=== PATIENT | male | born 1980 | race Caucasian/White ===

== ENCOUNTER → 2016-02-19 | Outpatient (CLI) | payer OTHER ==
[~2016-02-19] MED LIST: AMOXTAB PO; LORT1ELX PO
--- NOTE | 2016-02-19 12:02 | REP ---
Digital diagnostic bilateral mammography with CAD and focused left breast ultrasound: History: Left breast mass. Present for approximately a month. Enlarging. Occasional tenderness. Cystic on clinician exam. Mammographic findings: A skin marker is affixed to the skin at the site of the palpable abnormality. This projects at the areolar border just medial to the nipple. There is skin thickening overlying the very superficial lesion. A well-circumscribed 3.1 x 1.4 x 2.4 cm dermal or subdermal mass is seen mammographically in the left breast at the level of the areola. No other mammographic finding. The right breast is unremarkable. There is no evidence of gynecomastia or other density on the right. Sonographic findings: The area of the palpable lump is scanned in the areolar border. At 9 o'clock, there is a heterogeneous somewhat layered appearing avascular subdermal lesion with enhanced through transmission and no identifiable internal Doppler flow. There is hyperechoic material in the deep portion and irrelatively hypoechoic material in the superficial portion. It is well circumscribed. Sonographic dimensions are 3.1 x 1.1 x 2.4 cm. It is felt to be compatible with a sebaceous cyst. Impression: BIRADS category II benign bilateral breast imaging. Findings compatible with sebaceous cyst at the areolar border 9 o'clock position left breast. Clinical follow-up is advised. BI-RADS/ACR category 2 mammogram. Benign finding(s). Routine annual screening mammography (for women over age 40). This mammogram was interpreted with the aid of an FDA-approved computer-aided detection system. The patient states she had a clinical breast exam in February 2016. The patient letter male patient letter M2. Signed by Piotr Mccarthy MD 02/19/2016 01:43 P
== END ==
LOC: M RAD 09:23
PROVIDERS: ATTEND Family Medicine
DX: N60.92 Unspecified benign mammary dysplasia of left breast (principal)